=== PATIENT | female | born 1980 | race Two or more races ===

== ENCOUNTER 2019-06-19 08:19 | Outpatient (CLI) | payer OTHER | END 2019-06-19 10:55 | disposition home or self-care (01) | LOC: LAB 08:19 | DX: D50.8 Other iron deficiency anemias (principal); I10 Essential (primary) hypertension; Z80.3 Family history of malignant neoplasm of breast; D51.1 Vitamin B12 deficiency anemia due to selective vitamin B12 malabsorption with proteinuria; E03.8 Other specified hypothyroidism; J45.998 Other asthma; D51.8 Other vitamin B12 deficiency anemias; E06.3 Autoimmune thyroiditis; D51.0 Vitamin B12 deficiency anemia due to intrinsic factor deficiency ==

== ENCOUNTER → 2019-06-19 | Outpatient (CLI) | payer OTHER | END | disposition home or self-care (01) | LOC: MAMO-SONO 09:15 | DX: D51.1 Vitamin B12 deficiency anemia due to selective vitamin B12 malabsorption with proteinuria (principal); Z80.3 Family history of malignant neoplasm of breast; E03.8 Other specified hypothyroidism; J45.998 Other asthma; E06.3 Autoimmune thyroiditis ==

== ENCOUNTER 2022-06-02 08:19 | Outpatient (CLI) | payer OTHER | END 2022-06-02 08:21 | disposition home or self-care (01) | LOC: LAB 08:19 | PROVIDERS: ATTEND Internal Medicine Hematology & Oncology | DX: E03.8 Other specified hypothyroidism (principal); E78.00 Pure hypercholesterolemia, unspecified; D68.8 Other specified coagulation defects; E56.1 Deficiency of vitamin K; D69.1 Qualitative platelet defects; N39.0 Urinary tract infection, site not specified; N39.9 Disorder of urinary system, unspecified; D51.1 Vitamin B12 deficiency anemia due to selective vitamin B12 malabsorption with proteinuria; E06.3 Autoimmune thyroiditis; J45.998 Other asthma; Z80.3 Family history of malignant neoplasm of breast ==

== ENCOUNTER 2023-11-25 15:19 | Outpatient (CLI) | payer OTHER ==
[2023-11-25 16:33] LABS: COL EPI 197 SECONDS (82-175)
[2023-11-25 16:53] LABS: COL ADP 112 SECONDS (56-102)
== END 2023-11-25 15:21 | disposition home or self-care (01) ==
LOC: LAB 15:19
PROVIDERS: ATTEND Internal Medicine Hematology & Oncology
DX: D68.01 Von Willebrand disease, type 1 (principal)